=== PATIENT | male | born 1975 | race Caucasian/White ===

== ENCOUNTER 2019-11-22 09:32 | Day surgery (SDC) | payer BC ==
[~2019-11-22] VITALS: Ht 177.8 cm; Wt 108.2 kg
[~2019-11-22 09:32] MED LIST: ALBU90OI INH; B Complex-Foli1 EACH PO; FLUT1DIS5 INH; OMEPRAZOLE20 MG PO; PROM25 PO; PROM25S PR
--- NOTE | 2019-11-22 10:12 | NUR ---
History, Chart, Medications and Allergies reviewed before start of procedure. Patient confirms NPO status and agrees with scheduled surgery. Lungs clear T/O to Auscultation. Patient States Post-Procedure ride home has been arranged WITH , TEZ. Pre-Op teaching done. Pt verbalizes understanding. Patient reports completing Chlorhexadine shower X2 prior to admission to hospital. PATIENT BELONGING IN BAG.
--- NOTE | 2019-11-22 11:53 | NUR ---
PT TO STEP. DENIES PAIN AT PRESENT. DRESSING D/I.
--- NOTE | 2019-11-22 12:39 | NUR ---
WRITTEN AND VERBAL D/C INSTUCTIONS GIVEN TO PT WITH STATED UNDERSTANDING.
== END 2019-11-22 12:55 | disposition home or self-care (01) ==
LOC: ORSCMMR 09:32 → ORD 10:30 → ORSCMMR 10:30
PROVIDERS: Surgery
PROC: 0DQQ0ZZ Repair Anus, Open Approach (ICD-10-PCS; principal; 2019-11-22 10:30)
DX: K61.1 Rectal abscess (principal); K60.3 Anal fistula; J45.909 Unspecified asthma, uncomplicated; Z79.899 Other long term (current) drug therapy; Z87.891 Personal history of nicotine dependence
CPT/HCPCS: J0330; J1100; J1956; J2250; J2405; J2704; J2710; J3010; J7120

== ENCOUNTER → 2021-06-09 | Outpatient (CLI) | payer BC ==
[~2021-06-09] MED LIST changes: +METO10 PO
[2021-06-09 09:37] LABS: BASOPHILS ABSOLUTE AUTO 0.05 K/mm3 (0.00-0.23); BASOPHILS PERCENT AUTO 1 % (0-2); EOSINOPHILS ABSOLUTE AUTO 0.02 K/mm3 (0.00-0.68); EOSINOPHILS PERCENT AUTO 0 % (0-6); Hematocrit 46.8 % (37.0-53.0); Hemoglobin 15.6 g/dL (13.5-17.5); IMMATURE GRAN ABSOLUTE AUTO 0.03 K/mm3 (0.00-0.10); IMMATURE GRAN PERCENT AUTO 0 % (0-1); LYMPHOCYTES PERCENT AUTO 13 % (21-46); MONOCYTES ABSOLUTE AUTO 0.78 K/mm3 (0.16-1.47); MONOCYTES PERCENT AUTO 8 % (4-13); Mean Corpuscular HGB 31.5 pg (26.0-34.0); Mean Corpuscular HGB Conc 33.3 g/dL (31.5-36.5); Mean Corpuscular Volume 95 fL (80-100); Mean Platelet Volume 10.1 fL (9.1-12.4); NEUTROPHILS ABSOLUTE AUTO 7.96 K/mm3 (1.96-9.15); NEUTROPHILS PERCENT AUTO 79 % (41-73); Platelet Count 215 K/mm3 (150-400); RDW Coefficient Variation 12.1 % (11.7-14.2); RDW Standard Deviation 42.5 fL (35.1-46.3); Red Blood Cell Count 4.95 M/mm3 (4.30-5.90); White Blood Cell Count 10.14 K/mm3 (4.00-11.30)
[2021-06-09 09:49] LABS: Alanine Aminotransfer (ALT/SGP 29 U/L (12-78); Albumin/Globulin Ratio 1.1 (0.8-1.8); Alk Phos 50 U/L (50-136); Amylase, Blood 67 U/L (25-115); Anion Gap 6 mmol/L (6-16); Aspartate Aminotrans (AST/SGOT 14 U/L (12-37); Bilirubin, Total 0.9 mg/dL (0.1-1.0); Blood Urea Nitrogen 14 mg/dL (8-24); Bun/Creatinine Ratio 16.3 (12.0-20.0); CO2, Blood 26 mmol/L (21-32); Calcium, Blood 9.3 mg/dL (8.5-10.1); Chloride, Blood 105 mmol/L (98-108); Creatinine, Blood 0.86 mg/dL (0.60-1.20); Globulin, Blood 3.8 g/dL (2.2-4.0); Glomerular Filtration Rate >60 (60-); Glucose, Blood 99 mg/dL (70-99); Potassium, Blood 3.5 mmol/L (3.5-5.5); Sodium, Blood 137 mmol/L (136-145); Total Protein, Blood 7.8 g/dL (6.4-8.2)
== END | disposition home or self-care (01) ==
LOC: LAB SHORT 09:00
PROVIDERS: Physician Assistant
DX: R11.0 Nausea (principal)
CPT/HCPCS: 80053; 82150; 85025

== ENCOUNTER 2021-06-12 09:23 | Emergency (ER) | payer BC ==
[~2021-06-12] VITALS: Ht 177.8 cm; Wt 96.2 kg
[~2021-06-12 09:23] MED LIST changes: -METO10 PO
[2021-06-12] MEDS ORDERED: METO10 PO (11:44)
== END 2021-06-12 12:44 | disposition home or self-care (01) ==
LOC: ER 09:23
DX: R10.9 Unspecified abdominal pain (principal); R11.0 Nausea; K21.9 Gastro-esophageal reflux disease without esophagitis; Z87.891 Personal history of nicotine dependence
CPT/HCPCS: 36415; 74177; 83690; 96374; 99284-25; J2765; Q9967